=== PATIENT | female | born 1990 | race Hispanic/Latino ===

== ENCOUNTER 2016-11-10 11:49 | Outpatient (CLI) | payer MEDICAID | END 2016-11-10 16:05 | disposition home or self-care (01) | LOC: LAB 11:49 → TRG 15:43 → LAB 15:43 | PROVIDERS: ATTEND Obstetrics & Gynecology | DX: O36.0920 Maternal care for other rhesus isoimmunization, second trimester, not applicable or unspecified (principal); Z3A.22 22 weeks gestation of pregnancy | CPT/HCPCS: 86850; 86900; 86901; 96372; J2790 ==

== ENCOUNTER 2017-01-28 01:37 | Outpatient (CLI) | payer MEDICAID ==
[2017-01-28 04:06] VITALS: BP 124/86
[2017-01-28] MEDS ORDERED: VISTARIL PO ONE (04:34)
== END 2017-01-28 04:47 | disposition home or self-care (01) ==
LOC: TRG 01:37
PROVIDERS: ATTEND Obstetrics & Gynecology
DX: O48.0 Post-term pregnancy (principal); Z3A.40 40 weeks gestation of pregnancy
CPT/HCPCS: 59025; Q0177

== ENCOUNTER 2017-01-28 14:31 | Inpatient (IN) | payer MEDICAID ==
[2017-01-28] MEDS ORDERED: MORPHINE IM ONE (15:30)
[2017-01-28] MEDS ORDERED: PHENERGAN PO ONE (15:31)
[2017-01-28] MEDS ORDERED: MORPHINE IV ONE (16:00)
--- NOTE | 2017-01-28 16:14 | History and Physical Report ---
History of Present Illness Date of examination: 01/28/17 Date of admission: 01/28/17 14:32 Chief complaint: painful contractions History of present illness: 26y/o @ 40+6 weeks presents with painful uterine contractions. The has had a cervical exam of 2cm however noted her contractions were worsening. She denies leakage of fluid. records are not available for review. Past History Past Medical History: no pertinent history Past Surgical History: no surgical history Social history: single - Obstetrical History Expected Date of Delivery: 01/22/17 Actual Gestation: 40 Week(s) 6 Day(s) : 2 Para: 0 Hx # Term Pregnancies: 0 Number of Pregnancies: 0 Spontaneous Abortions: 1 Induced : 0 Number of Living Children: 0 Medications and Allergies Allergies Allergy/AdvReac Type Severity Reaction Status Date / Time No Known Allergies Allergy Unverified 11/10/16 15:58 Home Medications Medication Instructions Recorded Confirmed Last Taken Type No Known Home Medications [No 01/28/17 01/28/17 Unknown History Reported Home Medications] Vit-Fe Fumar-FA [ 1 tab PO QDAY 01/28/17 01/28/17 01/28/17 09: 00 History Vitamin] 1 Review of Systems All systems: negative Genitourinary: pelvic pain, contractions, no leakage of fluid - Vital Signs Vital signs: Vital Signs Pulse Resp Pulse Ox 92 H 18 98 01/28/17 14:51 01/28/17 14:51 01/28/17 14:51 Temp Pulse Resp BP Pulse Ox 78 18 137/90 94 01/28/17 16:07 01/28/17 14:51 01/28/17 16:07 01/28/17 15:32 - Physical Exam Breasts: Positive: deferred Cardiovascular: Regular rate Lungs: Positive: Clear to auscultation Abdomen: Positive: normal appearance, soft Results Result Diagrams: 01/28/17 16:30 01/28/17 16:30 All other labs normal. Assessment and Plan - Patient Problems (1) Post-term Current Visit: Yes Status: Acute Qualifiers: Post-term type: P (2) Prolonged latent phase of labor Current Visit: Yes Status: Acute Plan to address problem: patient admitted for therapeutic rest
[2017-01-28] MEDS ORDERED: LACTATED RINGERS 1,000 ML IV SCH (16:15)
[2017-01-28] MEDS ORDERED: LACTATED RINGERS 1,000 ML ONE (16:26)
[2017-01-28 17:43] LABS: Basophils % (Auto) 0.1 % (0.0-1.8); Hematocrit 37.8 % (30.3-42.9); Hemoglobin 13.2 gm/dl (10.1-14.3); Mean Corpuscular HGB Conc 35 % (30-34); Mean Corpuscular Hemoglobin 31 pg (28-32); Mean Corpuscular Volume 89 fl (79-97); Platelet Count 212 K/mm3 (140-440); Red Blood Count 4.24 M/mm3 (3.65-5.03); Red Cell Distribution Width 12.7 % (13.2-15.2); White Blood Count 18.5 K/mm3 (4.5-11.0)
[2017-01-28] MEDS ORDERED: POLYCILLIN/NS 2 GM/100 ML 2 GM/100 ML BAG IV ONE ×2 (18:00→18:17)
[2017-01-28 18:03] LABS: Alanine Aminotransferase 9 units/L (7-56); Lactate Dehydrogenase 175 units/L (91-180); Uric Acid 4.1 mg/dL (3.5-7.6)
[2017-01-28] MEDS ORDERED: ePHEDrine SULFATE IV PRN (18:15)
[2017-01-28] MEDS ORDERED: ePHEDrine SULFATE ONE (18:26)
[2017-01-28] MEDS ORDERED: LACTATED RINGERS 1,000 ML IV ONE (18:32)
[2017-01-28] MEDS ORDERED: PITOCin/NS 20 UNIT/1000ML DRIP 20 UNITS/1,000 ML BAG IV SCH (19:00)
--- NOTE | 2017-01-28 19:03 | Procedure Note ---
OB Delivery Note - Delivery Date of Delivery: 01/28/17 Surgeon: EMILY RALPH Estimated blood loss: 200cc - Vaginal Delivery presentation: vertex Delivery position: OA Delivery augmentation: pitocin Delivery monitor: external FHT Route of delivery: Delivery placenta: spontaneous Delivery cord: 3 umbilical vessels Episiotomy: none Delivery laceration: 2nd degree Delivery repair: vicryl Anesthesia: epidural Delivery comments: Patient progressed to C/C/+2 and pushed to deliver a liveborn male with apgars of 8/9 and weight of 7lbs 5oz. The shoulders delivered easily. The infant was bulb suctioned. The cord was clamped and cut and placed on the patient's abdomen. The placenta delivered spontaneously intact with 3VC. The patient sustained a midline 2nd degree laceration repaired in normal fashion with 2-0 vicryl. EBL 200ml. - A at 1 minute: 8 at 5 minutes: 9 Infant Gender: Male (weight 7lbs 5oz)
[2017-01-28] MEDS ORDERED: NARCAN 2 MG/2 ML IV PRN (19:09)
--- NOTE | 2017-01-28 19:11 | Anesthesia Consultation ---
Anesthesia Consult and Med Hx Date of service: 01/28/17 - Airway Anesthetic Teeth Evaluation: Good ROM Head & Neck: Adequate Mental/Hyoid Distance: Adequate Intubation Access Assessment: Probably Good - Pre-Operative Health Status ASA Pre-Surgery Classification: ASA2, Emergency Proposed Anesthetic Plan: Epidural, Spinal - Pulmonary Hx Asthma: No COPD: No Hx Pneumonia: No - Cardiovascular System Hx Hypertension: No - Central Nervous System Hx Seizures: No Hx Psychiatric Problems: No - Endocrine Hx Renal Disease: No Hx End Stage Renal Disease: No Hx Hypothyroidism: No Hx Hyperthyroidism: No - Hematic Hx Anemia: No Hx Sickle Cell Disease: No - Other Systems Hx Alcohol Use: No
[2017-01-28 19:31] LABS: Bilirubin,Urine NEG (Negative); Blood,Urine NEG (Negative); Ketones,Urine 20 mg/dL (Negative); Leukocyte Esterase,Urine NEG (Negative); Nitrite,Urine NEG (Negative); Protein,Urine <15 mg/dL mg/dL (Negative); Urobilinogen,Urine < 2.0 mg/dL (<2.0)
[2017-01-28] MEDS ORDERED: PITOCin/NS 30 UNIT/500ML 30 UNITS/500 ML BAG IV SCH (20:00)
[2017-01-28] MEDS ORDERED: fentaNYL-BUPIV 2 MCG/ML-0.125% 200 MCG/100 ML BAG EPIDURAL SCH (20:00)
[2017-01-28] MEDS ORDERED: XYLOCAINE MPF 2% ONE (20:16)
[2017-01-28] MEDS ORDERED: NORCO 5/325 PO PRN (21:04)
[2017-01-28] MEDS ORDERED: PHENERGAN PR PRN (21:04)
[2017-01-28] MEDS ORDERED: ZOFRAN IV PRN (21:04)
[2017-01-28] MEDS ORDERED: DULCOLAX PR PRN (21:04)
[2017-01-28] MEDS ORDERED: MILK OF MAGNESIA PO PRN (21:04)
[2017-01-28] MEDS ORDERED: PHENERGAN PO PRN (21:04)
[2017-01-28] MEDS ORDERED: LANSINOH TP PRN (21:04)
[2017-01-28] MEDS ORDERED: BENADRYL PO PRN (21:04)
[2017-01-28] MEDS ORDERED: TYLENOL PO PRN (21:04)
[2017-01-28] MEDS ORDERED: SODIUM CHLORIDE FLUSH SYRINGE 10 ML IV NR (22:00)
[2017-01-28 22:53] LABS: HIV-1 Antigen p24 Non React (Non React); HIVR-1/2 Ab Non React (Non React)
[2017-01-29] MEDS: TUCKS PAD TP PRN (00:22)
[2017-01-29] MEDS: MOTRIN PO SCH ×5 (00:22→21:45)
[2017-01-29 10:50] LABS: Hematocrit 32.8 % (30.3-42.9); Hemoglobin 11.6 gm/dl (10.1-14.3)
--- NOTE | 2017-01-29 11:17 | Progress Note ---
Assessment and Plan - Patient Problems (1) Post-term Current Visit: Yes Status: Acute Qualifiers: Post-term type: P Plan to address problem: Patient doing well Discharge home tomorrow (2) Prolonged latent phase of labor Current Visit: Yes Status: Acute Subjective - Subjective Date of service: 01/29/17 Interval history: The patient is doing well. She reports minor cramping. Her lochia is decreased. Patient reports: appetite normal, voiding normally, pain well controlled : doing well Objective - Vital Signs Latest vital signs: Vital Signs Temp Pulse Resp BP BP Pulse Ox 01/29/17 08:55 18 01/29/17 08:33 98.7 F 89 18 130/85 97 01/29/17 05:01 97.8 F 75 20 112/76 01/28/17 23:20 98 F 73 20 133/76 01/28/17 22:01 77 139/78 01/28/17 21:46 83 117/71 01/28/17 21:31 93 H 126/76 01/28/17 21:16 89 129/73 01/28/17 21:01 97 H 124/68 01/28/17 20:46 110 H 131/89 01/28/17 20:43 88 99 01/28/17 20:38 99 H 99 01/28/17 20:33 83 98 01/28/17 20:31 83 109/61 01/28/17 20:28 75 97 01/28/17 20:23 76 96 01/28/17 20:18 73 97 01/28/17 20:16 66 117/76 01/28/17 20:13 59 L 96 01/28/17 20:08 74 96 01/28/17 20:03 77 127/73 97 01/28/17 19:58 73 94 01/28/17 19:53 80 97 01/28/17 19:48 53 L 92 01/28/17 19:45 76 116/72 01/28/17 19:43 77 127/80 97 01/28/17 19:41 84 135/82 01/28/17 19:39 87 137/83 01/28/17 19:38 76 97 01/28/17 19:37 76 133/78 01/28/17 19:35 83 142/86 01/28/17 19:33 78 136/76 97 01/28/17 19:32 80 151/102 01/28/17 19:29 78 117/68 01/28/17 19:28 85 98 01/28/17 19:27 85 117/61 01/28/17 19:26 78 117/71 01/28/17 19:23 83 129/79 96 01/28/17 19:21 74 131/77 01/28/17 19:20 98.2 F 18 01/28/17 19:19 90 130/73 01/28/17 19:18 100 H 97 01/28/17 19:17 96 H 124/73 01/28/17 19:15 75 129/73 01/28/17 19:13 100 H 140/76 100 01/28/17 19:11 90 146/79 01/28/17 19:09 85 135/76 01/28/17 19:08 76 145/91 100 01/28/17 19:05 84 137/82 01/28/17 19:03 93 H 137/86 100 01/28/17 19:01 85 127/80 01/28/17 18:59 77 127/79 01/28/17 18:58 92 H 100 01/28/17 18:57 95 H 122/87 01/28/17 18:56 82 123/82 01/28/17 18:55 90 126/83 01/28/17 18:53 95 H 100 01/28/17 18:48 89 139/85 100 01/28/17 18:40 92 H 97 01/28/17 18:35 84 99 01/28/17 18:30 68 97 01/28/17 17:39 50 L 131/73 01/28/17 16:30 98.7 F 20 01/28/17 16:07 78 137/90 01/28/17 16:06 72 146/98 01/28/17 15:32 97 H 94 01/28/17 15:31 87 99 01/28/17 15:26 85 97 01/28/17 15:21 78 97 01/28/17 15:16 79 98 01/28/17 15:15 82 93 01/28/17 15:11 83 99 01/28/17 15:08 62 93 01/28/17 15:06 89 98 01/28/17 15:01 89 94 01/28/17 14:56 89 95 01/28/17 14:55 92 H 92 01/28/17 14:52 86 129/83 01/28/17 14:51 92 H 18 98 Intake and Output 01/28/17 01/29/17 01/29/17 22:59 06:59 14:59 Intake Total 360 240 Output Total 019 529 1121 Balance -400 60 -760 Intake: Oral 240 Intake, Free Water 360 Output: Urine 312 469 1020 Void 283 689 2327 Other: Total, Intake Amount 240 Total, Output Amount 252 882 5620 # Voids Void 1 Weight 79.832 kg Estimated Blood Loss 200 - Exam Uterus: Present: normal, firm - Labs Labs: Abnormal lab results 01/28/17 01/28/17 Range/Units 16:30 16:30 WBC 18.5 H (4.5-11.0) K/mm3 MCHC 35 H (30-34) % RDW 12.7 L (13.2-15.2) % Lymph % (Auto) 6.6 L (13.4-35.0) % Seg Neutrophils % 89.4 H (40.0-70.0) % Seg Neutrophils # 16.6 H (1.8-7.7) K/mm3 Creatinine 0.4 L (0.7-1.2) mg/dL
[2017-01-30] MEDS: MOTRIN PO SCH ×3 (03:24→15:43)
[2017-01-30] MEDS ORDERED: M-M-R II VACCINE SUB-Q ONE (06:00)
--- NOTE | 2017-01-30 11:15 | Discharge Summary ---
Providers - Providers Date of Admission: 01/28/17 14:32 Date of discharge: 01/30/17 Attending physician: EMILY RALPH Primary care physician: EMILY RALPH Hospitalization Reason for admission: active labor Delivery: Episiotomy: none Laceration: 2nd degree Other procedures: none complications: none Discharge diagnosis: IUP at term delivered baby: male Condition at discharge: Good Disposition: DC-01 TO HOME OR SELFCARE Plan - Discharge Medications Prescriptions: Ibuprofen [Motrin] 600 mg PO Q8H PRN #30 tablet PRN Reason: Pain oxyCODONE /ACETAMINOPHEN [Percocet 5/325] 1 tab PO Q6HR PRN #30 tablet PRN Reason: Pain - Provider Discharge Summary Activity: routine, no sex for 6 weeks, no heavy lifting 4 weeks, no strenuous exercise Diet: routine Instructions: routine Additional instructions: [] Smoking cessation referral if applicable(refer to patient education folder for contact #) [] Refer to [facility]'s [facility] [address] Booklet Call your doctor immediately for: * Fever > 100.5 * Heavy vaginal bleeding ( >1 pad per hour) * Severe persistent headache * Shortness of breath * Reddened, hot, painful area to leg or breast * Drainage or odor from incision. * Keep incision clean and dry at all times and follow doctor's instructions regarding bathing/showering - Follow up plan Follow up: EDWIN WOODWARD MD [Staff Physician] - 6 Weeks
[2017-01-30] MEDS: TUCKS PAD TP PRN (14:36)
[2017-01-30 18:06] VITALS: BP 131/91
== END 2017-01-30 18:30 | disposition home or self-care (01) | DRG 775 ==
LOC: TRG 14:31 → LD 14:32 → TRG 14:42 → OB 22:11
PROVIDERS: ADMIT Obstetrics & Gynecology; ATTEND Obstetrics & Gynecology
PROC: 10E0XZZ Delivery of Products of Conception, External Approach (ICD-10-PCS; principal; 2017-01-28)
PROC: 0KQM0ZZ Repair Perineum Muscle, Open Approach (ICD-10-PCS; 2017-01-28)
PROC: 3E0S3CZ (ICD-10-PCS; 2017-01-28)
PROC: 00HU33Z Insertion of Infusion Device into Spinal Canal, Percutaneous Approach (ICD-10-PCS; 2017-01-28)
PROC: 3E0334Z Introduction of Serum, Toxoid and Vaccine into Peripheral Vein, Percutaneous Approach (ICD-10-PCS; 2017-01-28)
DX: O48.0 Post-term pregnancy (principal); O63.0 Prolonged first stage (of labor); O70.1 Second degree perineal laceration during delivery; Z3A.40 40 weeks gestation of pregnancy; Z37.0 Single live birth; Z91.018 Allergy to other foods; Z88.8 Allergy status to other drugs, medicaments and biological substances
CPT/HCPCS: 36415; 80074; 81001; 82565; 83615; 84450; 84460; 84550; 85014; 85018; 85025; 85461; 86592; 86762; 86850; 86900; 86901; 87806; 90471; 99211; A6250; G0463; J0290; J2270; J2590; J2790; J7120; Q0169

== ENCOUNTER 2020-01-24 14:59 | Emergency (ER) | payer MEDICAID | END 2020-01-25 | disposition left against medical advice (07) | LOC: ED 14:59 | DX: O26.891 Other specified pregnancy related conditions, first trimester (principal); Z53.21 Procedure and treatment not carried out due to patient leaving prior to being seen by health care provider ==

== ENCOUNTER 2020-04-08 10:44 | Outpatient (CLI) | payer MEDICAID | END 2020-04-08 15:31 | disposition home or self-care (01) | LOC: LAB 10:44 → APU 14:24 → LAB 15:31 | DX: O26.892 Other specified pregnancy related conditions, second trimester (principal); Z67.21 Type B blood, Rh negative; Z3A.27 27 weeks gestation of pregnancy | CPT/HCPCS: 86850; 86900; 86901; 96372; J2790 ==

== ENCOUNTER 2020-06-30 16:44 | Outpatient (CLI) | payer MEDICAID ==
[2020-06-30 17:10] VITALS: BP 121/76
== END 2020-06-30 18:38 | disposition home or self-care (01) ==
LOC: TRG 16:44 → APU 16:50 → TRG 18:38
PROVIDERS: ATTEND Obstetrics & Gynecology
DX: O47.1 False labor at or after 37 completed weeks of gestation (principal); Z3A.39 39 weeks gestation of pregnancy
CPT/HCPCS: 59025